=== PATIENT | male | born 1990 | race Caucasian/White ===

== ENCOUNTER 2025-04-20 18:06 | Emergency (ER) | payer SELFPAY ==
[2025-04-20 18:20] VITALS: BP 117/76; PULSE 77; RESP 18; TEMP 36.6; O2SAT 95
[2025-04-20] MEDS: diazePAM 10 MG/2 ML SYR 5 MG IM (20:58)
[2025-04-20] MEDS: Ketorolac 15 MG/ML VIAL IM (20:58)
[2025-04-20] MEDS: oxyCODONE 10 MG TAB PO (20:58)
--- NOTE | 2025-04-20 23:00 | ED.GENADUL_ITS ---
Discharge Plan Disposition Patient Disposition: Home Condition: Stable Discharge Details Clinical Impression: Low back pain Primary Care Provider: None,None ED Provider: Uma Mcdaniels Home Meds and New Rx's Prescriptions: New cyclobenzaprine 10 mg tablet 10 mg PO TID PRNQty: 14 0RF prednisone 20 mg tablet 40 mg PO ONCE Qty: 10 0RF Discharge Instructions Instructions: Low Back Pain ED Additional Instructions: Lifting pulling pushing for the next 3 days, light stretching, take the steroid as prescribed Take Flexeril every 8 hours as needed for pain, this will make you drowsy do not combine with alcohol or operate your vehicle for 8 hours after taking this medication Take Tylenol as needed for breakthrough pain and return earlier should you have new or worsening complaints including changes in bowel or bladder fever chills, or numbness or tingling to your extremities Work on establishing care with a primary care doctor Stand Alone Forms: Work Release HPI General Date/Time Provider Initiated Documentation: 04/20/25 18:59 . HPI Narrative: This 35-year-old male presents with low back pain. He denies specific injury states the pain is in his low back and radiates around his abdomen. Same as prior episodes denies any strength or sensation changes to his extremities denies any changes in bowel or bladder took Tylenol prior to arrival without relief in symptoms. Denies any history of illicit substance abuse fever or chills. Denies any urinary complaints. Related Data Home Medications ?Medication ?Instructions ?Recorded ?Confirmed cyclobenzaprine 10 mg tablet 10 mg PO TID PRN #14 tabs 04/20/25 prednisone 20 mg tablet 40 mg (2 x 20 mg) PO ONCE #1 0 tabs 04/20/25 Previous Rx's ?Medication ?Instructions ?Recorded cyclobenzaprine 10 mg tablet 10 mg PO TID PRN #14 tabs 04/20/25 prednisone 20 mg tablet 40 mg (2 x 20 mg) PO ONCE #1 0 tabs 04/20/25 Allergies Allergy/AdvReac Type Severity Reaction Status Date / Time No Known Allergies Allergy Verified 04/20/25 18:23 General Stated Complaint: Nk/Back Pain RYAN: 4 Exam Narrative Exam Narrative: Patient is alert and oriented no acute distress, has tenderness on the lumbar spine, neurovascularly intact, strength and sensation intact distally no CVA tenderness no abdominal tenderness no abdominal bruit or pulsatile mass Course Vital Signs Vital signs: Vital Signs Temperature 36.6 C 04/20/25 18:20 Pulse 77 04/20/25 18:20 Respiratory Rate 18 04/20/25 18:20 Blood Pressure 117/76 04/20/25 18:20 Pulse Oximetry 95 04/20/25 18:20 Temperature 36.6 C 04/20/25 18:20 Temperature Source Oral 04/20/25 18:20 Pulse 77 04/20/25 18:20 Respiratory Rate 18 04/20/25 18:20 Blood Pressure 117/76 04/20/25 18:20 Blood Pressure Position Sitting 04/20/25 18:20 Pulse Oximetry 95 04/20/25 18:20 Oxygen Delivery Method Room Air 04/20/25 18:20 Oxygen Flow Rate 0 04/20/25 18:20 Pain Level 8 04/20/25 21:04 Medical Decision Making 35-year-old male presenting with low back pain acute exacerbation of chronic pain given oxycodone 10 mg p.o. Valium 5 mg IM Toradol patient is now ambulatory feels significant improvement no indication for imaging as there is no specific trauma no clinical findings consistent with cauda equina syndrome. Patient encouraged to follow-up and establish care with a primary care physician he was given Decadron and Flexeril for home and a work note supplied for this evening Recheck in 3 to 5 days with persistent symptoms Return precautions reviewed and patient expressed understanding PFSH All Active Problems (Updated 04/20/25 @ 21:33 by ISAIAH Ivy) Low back pain (Acute) Social History Smoking/Tobacco Use Status: Current every day Smoking risk assessment performed?: Yes Drug use: Never Substance use type: does not use Housing: other Do you feel safe at home: Yes Do you feel safe in your relationship?: Yes
== END 2025-04-20 21:04 | disposition home or self-care (01) ==
PROVIDERS: Emergency Provider Physician Assistant
DX: M54.50 Low back pain, unspecified (principal); F17.200 Nicotine dependence, unspecified, uncomplicated
CPT/HCPCS: 96372; 99283; J1885; J3360